=== PATIENT | female | born 1965 ===

== ENCOUNTER 2017-09-04 07:27 | Emergency (ER) | payer OTHER ==
[~2017-09-04] VITALS: Ht 160 cm; Wt 95.3 kg
--- NOTE | 2017-09-04 08:25 | ED HEADACHE COMPLAINT ---
History of Present Illness General Chief Complaint: Headache Stated Complaint: NAVARRO X 4DYS Source: patient Exam Limitations: no limitations Vital Signs & Intake/Output Vital Signs & Intake/Output Vital Signs Date Time Temp Pulse Resp B/P B/P Pulse O2 O2 Flow FiO2 Mean Ox Delivery Rate 09/04 1044 98.2 78 18 112/76 100 Room Air 09/04 0937 98.0 66 18 118/74 96 Room Air 09/04 0737 97.0 76 20 122/85 98 Room Air Allergies Coded Allergies: NO KNOWN ALLERGIES (09/04/17) Triage Note: PT C/O H/A X 4 DAYS. STATES BOTTOM LEFT SIDE OF HEAD. STATES SHE WENT TO CLINIC ON SATURDAY AND WAS TOLD SHE IS DEHYDRATED. STATES OTC MEDS ARE NOT HELPING THE H/A. NEUROS INTACT IN TRIAGE Triage Nurses Notes Reviewed? yes HPI: Patient is a 52-year-old female with a long past medical history of recurrent headaches which are infrequent but debilitating. She has never been diagnosed with a formal headache syndrome, and does not have a neurologist. She typically takes acetaminophen for her headaches with success, reports that she did not have any in the house so she took ibuprofen yesterday without improvement. Symptoms have been progressing for the past several days, and have kept her out of work. She denies any neurologic features, and reports nausea but no vomiting. Denies other complaints at this time. Past History Travel History Traveled to [place] past 21 day No Medical History Any Pertinent Medical History? see below for history Neurological: Headaches EENT: NONE Cardiovascular: NONE Respiratory: NONE Gastrointestinal: NONE Hepatic: NONE Renal: NONE Musculoskeletal: NONE Psychiatric: NONE Endocrine: hypothyroidism Surgical History Surgical History: none Psychosocial History What is your primary language Wolof Tobacco Use: Never used ETOH Use: denies use Illicit Drug Use: denies illicit drug use Family History Hx Contributory? Yes Review of Systems Review of Systems Constitutional: Reports: see HPI. Eyes: Reports: no symptoms. Ears, Nose, Throat, Mouth: Reports: no symptoms. Respiratory: Reports: no symptoms. Cardiovascular: Reports: no symptoms. Gastrointestinal/Abdominal: Reports: no symptoms. Genitourinary: Reports: no symptoms. Musculoskeletal: Reports: no symptoms. Skin: Reports: no symptoms. Neurological/Psychological: Reports: see HPI, headache. Hematologic/Endocrine: Reports: no symptoms. Endocrine: Reports: no symptoms. Immunologic/Allergic: Reports: no symptoms. All Other Systems: Reviewed and Negative Physical Exam Physical Exam Cranial Nerves: normal hearing, normal speech, PERRL Comments: HEENT: Inspection of the head reveals a normocephalic cranium with no signs of trauma. Ophtho: Extraocular muscles are intact and pupils are equal and reactive to light bilaterally with no afferent pupillary defect. The sclera are noninjected , and there is no obvious discharge. Neck: The trachea is midline, there is no obvious asymmetry or mass over the thyroid, and there is no midline cervical spine tenderness Respiratory: The lungs are clear and equal to auscultation bilaterally without wheezes, rales, or rhonchi. The patient exhibits no signs of labored breathing. Cardiac: Regular rhythm and non-tachycardic without appreciable murmurs on auscultation. No obvious JVD. GI: Examination of the abdomen reveals no significant focal tenderness in any of the four quadrants. There is negative Leija's sign, negative McBurney's point tenderness, negative Marquette sign, negative Duke-Jalloh sign, and no signs of peritonitis whatsoever on percussion or deep palpation. The skin is intact with no sign of trauma or infection. : Deferred Neuro: Subjective headache in the left occipital region. The patient is oriented to person, place, time, and situation, with no obvious focal motor deficits. There were no sensory deficits, and the patient exhibit purposeful movement of all 4 extremities. Cranial nerves II through XII are intact, and gait is normal. Behavioral: Calm and cooperative Dermatologic: Dermatologic examination reveals no diffuse rashes or exanthems, no petechiae, no ecchymoses, and no other signs of erythema or infection. Core Measures Sepsis Present: No Sepsis Focused Exam Completed? No Progress Differential Diagnosis: carotid dissection, cav sinus thromb, cluster NAVARRO, encephalitis, IC mass/tumor, intracranial Hem., migraine NAVARRO, musculoskeletal pain, subarach. Hem., tension NAVARRO Plan of Care: Orders Procedure Date/time Status COMPREHENSIVE METABOLIC PANEL 09/04 821 Complete CBC WITHOUT DIFFERENTIAL 09/04 821 Complete Laboratory Tests 09/04/17 0927: Anion Gap 9, Estimated GFR > 60, BUN/Creatinine Ratio 16.3, Glucose 102 H, Calcium 8.9, Total Bilirubin 0.3, AST 14, ALT 30, Alkaline Phosphatase 91, Total Protein 6.2 L, Albumin 3.1 L, Globulin 3.1, Albumin/Globulin Ratio 1.0 L 09/04/17 0840: CBC w Diff NO MAN DIFF REQ, RBC 4.80, MCV 88.5, MCH 30.3, MCHC 34.2, RDW 13.4, MPV 8.4, Gran % 50.5, Lymphocytes % 41.3, Monocytes % 5.9, Eosinophils % 1.9, Basophils % 0.4, Absolute Granulocytes 3.1, Absolute Lymphocytes 2.5, Absolute Monocytes 0.4, Absolute Eosinophils 0.1, Absolute Basophils 0 Comments: Patient presents today with a nonspecific headache syndrome which was consistent with recurrent symptoms she has had in the past. No neurologic features are present. At this point, the precise etiology of the patient's current symptom complex is unclear. However, I doubt acute DISTRIBUTION TECHNICIAN catastrophe (including but not limited to mass, infection, hemorrhage, or infarction) secondary to the time course, the patient's well appearance, their essentially normal vital signs, and the nonfocal nature of the physical examination (with particular attention paid to the neurovascular examination) which has been repeated several times here in the emergency department. Given her lack of specific focal neurologic features, I did not feel that advanced radiologic imaging was warranted today. Of note, the patient declined lumbar puncture here in the emergency department after a thorough discussion regarding the risks and benefits of doing so. Additionally, I doubt an extracranial etiology for the patient's symptoms given the previously -mentioned factors. However, the remote but distinct possibility of occult intra -/extracranial pathology was explained in detail to the patient, who verbalized excellent understanding. The patient is to follow up with their primary care physician for further evaluation and management; alternatively, they are to expeditiously return to the emergency department with any questions or concerns. All of the patient's questions were answered to their satisfaction and they verbalized excellent understanding of their possible diagnoses and need for close follow up. Departure Departure Time of Disposition: 1051 Disposition: HOME OR SELF CARE Condition: Stable Clinical Impression Primary Impression: Headache Qualifiers: Headache type: unspecified Headache chronicity pattern: episodic headache Intractability: not intractable Qualified Code: R51 - Headache Referrals: Nathan GREER,Gregory Weaver (PCP/Family) Additional Instructions: We are glad your headache improved with the medications we gave few by IV today. Please use Excedrin migraine [id number] going forward, as this has been found to be the most effective oral headache medication available without a prescription. Please make an appointment to be reevaluated by your primary physician, who can re-prescribe any further medications and refer you to a headache specialist (neurologist) if needed. As always, return to the emergency department with any new or worsening symptoms. Departure Forms: Customer Survey General Discharge Information
[2017-09-04 08:47] LABS: ABSOLUTE BASOPHIL COUNT 0 /CUMM (0.0-0.2); ABSOLUTE EOSINOPHIL COUNT 0.1 /CUMM (0.0-0.7); ABSOLUTE GRANULOCYTE CT 3.1 /CUMM (1.4-6.5); ABSOLUTE LYMPH COUNT 2.5 /CUMM (1.2-3.4); ABSOLUTE MONOCYTE COUNT 0.4 /CUMM (0.10-0.60); BASOPHIL % 0.4 % (0.0-2.0); EOSINOPHIL % 1.9 % (0-5); GRANULOCYTE % 50.5 % (42.2-75.2); HEMATOCRIT 42.5 % (37-47); MEAN CORPUSCULAR HGB 30.3 PG (27.0-31.0); MEAN CORPUSCULAR HGB CONC 34.2 G/DL (33.0-37.0); MEAN CORPUSCULAR VOLUME 88.5 FL (81.0-99.0); MEAN PLATELET VOLUME 8.4 FL (7.4-10.4); PLATELET COUNT 329 /CUMM (130-400); RBC DISTRIBUTION WIDTH 13.4 % (11.5-14.5)
[2017-09-04 10:44] VITALS: BP 112/76
== END 2017-09-04 11:08 ==
LOC: ERH 07:27
PROVIDERS: Student in an Organized Health Care Education/Training Program
DX: R51 Headache (principal)
CPT/HCPCS: 96374; 96375; J1885; J2765